=== PATIENT | female | born 1960 | race African-American/Black ===

== ENCOUNTER 2020-12-16 09:39 | Emergency (ER) | payer MEDICARE, MEDICAID ==
[2020-12-16 11:52] VITALS: BP 117/59
[2021-02-22] MEDS ORDERED: AMLODIPINE BESY10 MG PO (09:59)
[2021-02-22] MEDS ORDERED: LISINOPRIL10 MG PO (09:59)
[2021-02-22] MEDS ORDERED: TRAMADOL HCL50 MG PO (09:59)
[2021-02-22] MEDS ORDERED: LOPRESSOR25 M1 PO (10:00)
[2021-02-22] MEDS ORDERED: METFORMIN HCL1000 MG PO (10:00)
[2021-02-24] MEDS ORDERED: GARLIC500 M1 PO (11:52)
[2021-02-24] MEDS ORDERED: [UNRECOGNIZED DRUG - OTHER] SL (11:55)
[2021-02-24] MEDS ORDERED: ASPIRIN 81 LOW81 MG PO (11:55)
== END 2020-12-16 11:57 | disposition home or self-care (01) ==
LOC: ED 09:39
DX: I10 Essential (primary) hypertension (principal); E11.9 Type 2 diabetes mellitus without complications; J32.9 Chronic sinusitis, unspecified

== ENCOUNTER 2022-04-22 10:09 | Day surgery (SDC) | payer MEDICARE, MEDICAID ==
[~2022-04-22] VITALS: Ht 162.6 cm; Wt 115.0 kg
[~2022-04-22 10:09] MED LIST: ABILIFY10 M1; AMLODIPINE BESY10 MG PO; ARNUITY EL50 MCG/ACT; ASPIRIN 81 LOW81 MG PO; CORICIDI1 PO; GARLIC1000 MG PO; GARLIC500 M1 PO; LISINOPRIL10 MG PO; LOPRESSOR25 M1 PO; METFORMIN HCL1000 MG PO; NORVASC5 M1 PO; TRAMADOL HCL50 MG PO; [UNRECOGNIZED DRUG - OTHER] SL
[2022-04-22 13:23] VITALS: BP 119/74
== END 2022-04-22 13:53 | disposition home or self-care (01) ==
LOC: ENDO 10:09
PROVIDERS: ATTEND Surgery
PROC: 0DJD8ZZ Inspection of Lower Intestinal Tract, Via Natural or Artificial Opening Endoscopic (ICD-10-PCS; principal; 2022-04-22)
DX: K57.31 Diverticulosis of large intestine without perforation or abscess with bleeding (principal); K64.8 Other hemorrhoids; I10 Essential (primary) hypertension; E11.9 Type 2 diabetes mellitus without complications; Z79.84 Long term (current) use of oral hypoglycemic drugs

== ENCOUNTER 2022-08-09 10:48 | Emergency (ER) | payer MEDICARE, MEDICAID ==
[~2022-08-09] VITALS: Ht 162.6 cm; Wt 115.0 kg
[2022-08-09] VITALS (9 sets, daily range): BP systolic 98–148; BP diastolic 58–95
[2022-08-09] MEDS ORDERED: DIFLUCAN150 MG PO (12:22)
[2022-08-09] MEDS ORDERED: KEFLEX500 MG PO (12:22)
[2022-08-09] MEDS ORDERED: COLCHICINE0.6 M2 PO (12:22)
== END 2022-08-09 12:32 | disposition home or self-care (01) ==
LOC: ED 10:48
DX: M10.072 Idiopathic gout, left ankle and foot (principal); M10.071 Idiopathic gout, right ankle and foot; L03.031 Cellulitis of right toe; I10 Essential (primary) hypertension; E11.9 Type 2 diabetes mellitus without complications; Z79.84 Long term (current) use of oral hypoglycemic drugs